=== PATIENT | male | born 2000 | race Hispanic/Latino ===

== ENCOUNTER 2018-04-15 07:28 | Emergency (ER) | payer BC, OTHER ==
[2018-04-15 07:52] VITALS: O2SAT 100
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
--- NOTE | 2018-04-15 08:24 | RAD ---
EXAM DESCRIPTION: Foot,Right 3 Views CLINICAL HISTORY: 17 years Male, foot trauma COMPARISON: None. FINDINGS: No fracture or dislocation. Soft tissues are unremarkable. IMPRESSION: No acute abnormality. Electronically signed by: Antoni Mccloud DO 04/15/2018 8:23 AM CDT
[2018-04-15 08:48] VITALS: BP 125/83; TEMP 98
== END 2018-04-15 08:50 | disposition home or self-care (01) ==
LOC: ER 07:28
DX: S90.31XA Contusion of right foot, initial encounter (principal); W22.8XXA Striking against or struck by other objects, initial encounter; Y92.89 Other specified places as the place of occurrence of the external cause; Y93.89 Activity, other specified

== ENCOUNTER 2018-07-13 20:37 | Emergency (ER) | payer SELFPAY ==
[2018-07-13 21:01] VITALS: TEMP 97.7; O2SAT 98
--- NOTE | 2018-07-13 21:07 | ED.PDOC ---
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 Occurred: this evening Pain - Lower Extremity: moderate: Left Knee Method of Injury: twisted Improving Factors: rest Worsening Factors: movement Associated Symptoms: pain Allergies/Adverse Reactions: Allergies NO KNOWN ALLERGY Allergy (Unverified 03/04/15 16:02) Home Medications: Ambulatory Orders Add Medicine 1 each PO DAILY 03/04/15 Tramadol HCl 50 mg PO Q6HRS PRN #20 tab 07/13/18 Review of Systems - Review of Systems Musculoskeletal: States: see HPI, joint pain - left knee All other Systems: Reviewed and Negative, No Change from Baseline Past Medical History (General) - Patient Medical History Hx Seizures: No Hx Stroke: No Hx Asthma: No Hx Cardiac Disorders: No Hx Congestive Heart Failure: No Hx Pacemaker: No Hx Diabetes: No Hx Cancer: No Hx Hepatitis C: No Hx MRSA: No Surgical History: other - hip surgery - Vaccination History Hx Tetanus, Diphtheria Vaccination: No Hx Influenza Vaccination: Yes Hx Pneumococcal Vaccination: No Immunizations Up to Date: Yes - Social History Hx Tobacco Use: No Hx Chewing Tobacco Use: No Hx Alcohol Use: No Hx Substance Use: Yes - Karin Hx Substance Use Treatment: No Hx Depression: No Hx Physical Abuse: No Hx Emotional Abuse: No Hx Suspected Abuse: No - Female History Patient : No Family Medical History - Family History Mother Family History: No Known Living Status: Still Living Physical Exam - Physical Exam General Appearance: Alert, Comfortable, No apparent distress Eyes, Ears, Nose, Throat: normal ENT inspection Cardiovascular/Respiratory: regular rate, rhythm, no M/R/G, normal peripheral pulses Gastrointestinal/Abdominal: non-tender, no organomegaly Back: no CVA tenderness, no vertebral tenderness Thigh/Hip: normal inspection, non-tender, no evidence of injury Leg: normal inspection, non-tender, no evidence of injury Knee: bone tenderness, limited ROM - painful , pain - tibila line tenderness, soft tissue tenderness Ankle: normal inspection, non-tender, no evidence of injury, normal ROM Foot: normal inspection, non-tender, no evidence of injury, normal ROM Neuro/Tendon: normal sensation, normal motor functions, normal tendon functions , responds to pain Mental Status: alert, oriented x 3 Skin: normal color, warm/dry Progress - Progress Progress: 07/13/18 21:22 Vital Signs - 8 hr 07/13/18 20:52 Temperature 97.7 F Pulse Rate [ 90 left] Respiratory 20 Rate Blood Pressure 142/84 [left] O2 Sat by Pulse 98 Oximetry - EKG/XRAY/CT XRAY: pelvis - small knee effusion;no fracture;no fracture or avascular necrosis Departure - Departure Clinical Impression: Sprain of left knee Qualifiers: Encounter type: initial encounter Involved ligament of knee: unspecified ligament Qualified Code(s): S83.92XA - Sprain of unspecified site of left knee, initial encounter Time of Disposition: 23:00 Disposition: Discharge to Home or Self Care Condition: Fair Departure Forms: ED Discharge - Pt. Copy, Patient Portal Self Enrollment Instructions: Knee Sprain (DC), Ligament Injuries in the Knee (DC), Ligament Injuries in the Knee Prescriptions: Tramadol HCl 50 mg PO Q6HRS PRN #20 tab PRN Reason: Pain Home Medications: Ambulatory Orders Add Medicine 1 each PO DAILY 03/04/15 Tramadol HCl 50 mg PO Q6HRS PRN #20 tab 07/13/18 Additional Instructions: Follow up with orthopedist 15 July 2018
[2018-07-13] MEDS: KETOROLAC TROMETHAMINE INJ 30 MG/ML VIAL IM ONE (21:28)
[2018-07-13] MEDS: HYDROcodone 10MG/APAP 325MG 1 EA TAB PO ONE (21:28)
--- NOTE | 2018-07-13 22:49 | RAD ---
EXAM: 3 VIEWS LEFT KNEE RADIOGRAPHS CLINICAL INDICATION: Pain post twisting injury. COMPARISON: None. FINDINGS: Small suprapatellar joint effusion. No fractures or dislocations. No radiopaque soft tissue foreign bodies or soft tissue gas. IMPRESSION: Small joint effusion. Otherwise normal 3 view left knee radiographic series. Electronically signed by: Rah Smith MD 07/13/2018 10:48 PM [facility]
--- NOTE | 2018-07-13 22:55 | RAD ---
EXAM: 1 VIEW(S) OF THE PELVIS CLINICAL INDICATION: Pain. COMPARISON: None. FINDINGS: No fractures or dislocations. Remote right femoral neck gamma nail. No lytic or blastic bone lesions. IMPRESSION: No acute fractures or dislocations. No radiographic evidence of femoral head avascular necrosis. Electronically signed by: Rah Smith MD 07/13/2018 10:53 PM [facility]
[2018-07-13] MEDS: HYDROCOD/APAP 10/325 (ER DISP) # 3 tablets PO ONE (23:13)
[2018-07-13 23:23] VITALS: BP 134/89
== END 2018-07-13 23:22 | disposition home or self-care (01) ==
LOC: ER 20:37
DX: S83.92XA Sprain of unspecified site of left knee, initial encounter (principal); X50.9XXA Other and unspecified overexertion or strenuous movements or postures, initial encounter; Y93.01 Activity, walking, marching and hiking; Y92.89 Other specified places as the place of occurrence of the external cause; Z98.890 Other specified postprocedural states
CPT/HCPCS: 72170; 73560; J1885

== ENCOUNTER 2019-02-18 16:09 | Emergency (ER) | payer SELFPAY ==
[2019-02-18 16:45] VITALS: TEMP 98.4; O2SAT 99
--- NOTE | 2019-02-18 16:57 | ED.PDOC ---
History of Present Illness - General Chief Complaint: Lower Extremity Injury Stated Complaint: left knee pain Time Seen by Provider: 02/18/19 16:55 Source: patient Exam Limitations: no limitations - History of Present Illness Initial Comments: the patient is a 18-year-old female presenting to emergency room secondary to left knee pain present for the last 5 days. He actually injured the left knee about 6 months ago in the winter by twisting it. On both episodes he has having some difficulty with maximal flexion, he is having some mild generalized swelling, and he has tenderness to palpation over the left medial collateral ligament and with external rotation of the foot with the knee moderately flexed. He is neurovascularly intact. He does report at times that he feels like there is a popping in there though it is never really locked up on him. There is no gross deformity. He has been ambulatory for the last 5 days. He simply twisted it again 5 days ago. No ankle pain and no hip pain. Timing/Duration: 1 week Severity: moderate Improving Factors: immobilization Worsening Factors: movement Associated Symptoms: denies symptoms Allergies/Adverse Reactions: Allergies NO KNOWN ALLERGY Allergy (Unverified 02/18/19 16:45) Review of Systems - Review of Systems Constitutional: States: no symptoms reported EENTM: States: no symptoms reported Respiratory: States: no symptoms reported Cardiology: States: no symptoms reported Gastrointestinal/Abdominal: States: no symptoms reported Genitourinary: States: no symptoms reported Musculoskeletal: States: see HPI Skin: States: no symptoms reported Neurological: States: no symptoms reported All other Systems: No Change from Baseline Past Medical History (General) - Patient Medical History Hx Seizures: No Hx Stroke: No Hx Asthma: No Hx Cardiac Disorders: No Hx Congestive Heart Failure: No Hx Pacemaker: No Hx Diabetes: No Hx Cancer: No Hx Hepatitis C: No Hx MRSA: No - Vaccination History Hx Tetanus, Diphtheria Vaccination: Yes Hx Influenza Vaccination: Yes Hx Pneumococcal Vaccination: No Immunizations Up to Date: Yes - Social History Hx Tobacco Use: No Hx Chewing Tobacco Use: No Hx Alcohol Use: No Hx Substance Use: No Hx Substance Use Treatment: No Hx Depression: No Hx Physical Abuse: No Hx Emotional Abuse: No Hx Suspected Abuse: No - Female History Patient : No Family Medical History - Family History Mother Family History: No Known Living Status: Still Living Physical Exam - Physical Exam General Appearance: Alert, Comfortable, No apparent distress Eye Exam: bilateral normal Ears, Nose, Throat: hearing grossly normal Neck: full range of motion, supple Respiratory: no respiratory distress, no accessory muscle use Cardiovascular/Chest: normal peripheral pulses, no edema Peripheral Pulses: dorsalis pedis,right: 2+, dorsalis pedis,left: 2+, posterior tibialis,right: 2+, posterior tibialis,left: 2+ Gastrointestinal/Abdominal: other - obese Rectal Exam: deferred Back Exam: no CVA tenderness, no vertebral tenderness Extremity: no pedal edema, no calf tenderness, normal capillary refill, other - see history of present illness Neurologic: rn angiography II-XII nml as tested, alert, normal mood/affect, oriented x 3 Skin Exam: normal color Comments: Vital Signs - 24 hr 02/18/19 16:42 Temperature 98.4 F Pulse Rate [ 78 monitor] Respiratory 18 Rate Blood Pressure 150/82 [la] O2 Sat by Pulse 99 Oximetry Progress - Progress Progress: 02/18/19 16:58 the patient is a 18-year-old male presents to emergency room with what appears to be a left medial collateral ligament sprain. There may be a mild associated meniscal tear based on symptoms as well. He is going to be placed in a knee immobilizer for a couple of weeks. The patient is going to largely be unable to bend the knee for that period of time so his occupation may be affected by that during this time period. If he is not improving over that course then he may need to see an orthopedist for further evaluation and possible intervention. Motrin can be used for discomfort. ER warnings were given. Departure - Departure Clinical Impression: Knee MCL sprain Qualifiers: Encounter type: initial encounter Laterality: left Qualified Code(s): S83.412A - Sprain of medial collateral ligament of left knee, initial encounter Disposition: Discharge to Home or Self Care Condition: Good Departure Forms: ED Discharge - Pt. Copy, Patient Portal Self Enrollment Instructions: Knee Sprain (DC) Diet: regular diet Activity: other Additional Instructions: the patient is a 18-year-old male presents to emergency room with what appears to be a left medial collateral ligament sprain. There may be a mild associated meniscal tear based on symptoms as well. He is going to be placed in a knee immobilizer for a couple of weeks. The patient is going to largely be unable to bend the knee for that period of time so his occupation may be affected by that during this time period. If he is not improving over that course then he may need to see an orthopedist for further evaluation and possible intervention. Motrin can be used for discomfort. ER warnings were given.
[2019-02-18 17:13] VITALS: BP 154/87
== END 2019-02-18 17:11 | disposition home or self-care (01) ==
LOC: ER 16:09
DX: S83.412A Sprain of medial collateral ligament of left knee, initial encounter (principal); X50.9XXA Other and unspecified overexertion or strenuous movements or postures, initial encounter; Z87.828 Personal history of other (healed) physical injury and trauma; Y92.9 Unspecified place or not applicable; Y93.02 Activity, running